=== PATIENT | female | born 1965 | race Caucasian/White ===

== ENCOUNTER → 2017-06-12 | Outpatient (REF) ==
[~2017-06-12] MED LIST: ADV250/50 INH; ALBU8.5H12 IH; CITA-128 PO; CYCL10TA29 PO; IBUP-1618 PO; IBUP600T22 PO; KET10 PO; LOR5 PO; LORA-1456 PO; NYST15CR37 TP; OMEP-153 PO; PER PO; ROBC PO; TORADOL; TRAZ-133 PO; TRAZADONE
--- NOTE | 2017-06-12 10:18 | RADIOLOGY IMAGING REPORT ---
FACILITY: [facility] - [place] PATIENT NAME: Mandie Mcclelland : 1965 MR: [id number] V: [id number] EXAM DATE: ORDERING PHYSICIAN: ARSH SAMUEL TECHNOLOGIST: Location: [facility] Patient: Mandie Mcclelland : 1965 Visit/Account:[id number] Date of Sevice: 06/12/2017 Exam type: CHEST PA AND LAT History: COPD, preop Comparison: February 03, 2012. Findings: The lungs are free of acute effusions, infiltrates or edema. There is no evidence of a pneumothorax or pneumomediastinum. Cardiac silhouette is normal in size. The trachea is in midline. IMPRESSION: 1. No acute cardiopulmonary process is seen Report Dictated By: Julia Swan MD at 06/12/2017 10:13 AM Report E-Signed By: Julia Swan MD at 06/12/2017 10:14 AM WSN:[email or web address]
--- NOTE | 2017-06-12 10:46 | EKG ---
FACILITY: [facility] - [place] PATIENT NAME: JULIA NANCE : [id number] MR: [id number] V: [id number] EXAM DATE: ORDERING PHYSICIAN: ARSH SAMUEL TECHNOLOGIST: Test Reason : Blood Pressure : / mmHG Vent. Rate : 073 BPM Atrial Rate : 073 BPM P-R Int : 144 ms QRS Dur : 080 ms QT Int : 394 ms P-R-T Axes : 032 030 029 degrees QTc Int : 434 ms Normal sinus rhythm with sinus arrhythmia Normal ECG When compared with ECG of 20-NOV-2012 17:11, No significant change was found Confirmed by KRYSTAL RAMIREZ ([id number]) on 06/12/2017 11:25:50 AM Referred By: Confirmed By:KRYSTAL RAMIREZ
== END ==
LOC: RAD 09:36
PROVIDERS: ATTEND Nurse Practitioner
DX: Z01.810 Encounter for preprocedural cardiovascular examination (principal); Z01.818 Encounter for other preprocedural examination; J44.9 Chronic obstructive pulmonary disease, unspecified
CPT/HCPCS: 71046; 93005

== ENCOUNTER 2017-06-22 00:44 | Inpatient (IN) | payer OTHER ==
[~2017-06-22] VITALS: Ht 165.1 cm; Wt 99.8 kg
[2017-06-22] VITALS (11 sets, daily range): BP systolic 117–151; BP diastolic 70–102
[2017-06-22] MEDS ORDERED: THROMBIN (BOVINE) 20,000 UNIT VIAL ONE (06:20)
[2017-06-22] MEDS ORDERED: ceFAZolin(*) 2GM/D5W 50ML 50 ML IVPB ONE (09:00)
[2017-06-22] MEDS ORDERED: FAMOTIDINE 20 MG TAB PO ONE (09:00)
[2017-06-22] MEDS ORDERED: LIDOCAINE/SOD BICARB 8.4% SYR ID ONE (09:00)
[2017-06-22] MEDS ORDERED: MIDAZOLAM 2 MG/2 ML VIAL IVP ONE (09:00)
[2017-06-22] MEDS ORDERED: NORMOSOL R SOLN(*) 1000 ML BAG 1,000 ML IV PRN (09:00)
[2017-06-22] MEDS ORDERED: BUPIVACAIN 0.25% INJ 50ML VIAL ONE (11:02)
[2017-06-22] MEDS ORDERED: SUCCINYLCHOL CHL 100MG/5ML SYR IVP ONE (11:45)
[2017-06-22] MEDS ORDERED: fentaNYL CITR 250 MCG/5 ML AMP ONE (11:55)
[2017-06-22] MEDS ORDERED: PROPOFOL EMUL(*) 10MG/ML 20 ML 180 ML ONE (12:51)
[2017-06-22] MEDS ORDERED: ONDANSETRON 4 MG/2 ML VIAL ONE (12:51)
[2017-06-22] MEDS ORDERED: DEXAMETHASONE SOD PHOS 10MG/ML ONE (12:51)
[2017-06-22] MEDS ORDERED: fentaNYL CITR 100 MCG/2 ML AMP ONE (14:39)
[2017-06-22] MEDS ORDERED: HYDROmorphone HCL 2 MG/ML SDV ONE (14:58)
[2017-06-22] MEDS ORDERED: DIAZEPAM 5 MG TAB PO PRN (15:25)
[2017-06-22] MEDS ORDERED: BISACODYL 10 MG SUPP PR PRN (15:25)
[2017-06-22] MEDS ORDERED: ONDANSETRON 4 MG/2 ML VIAL IVP PRN (15:25)
[2017-06-22] MEDS ORDERED: MAGNESIUM HYDROXIDE* 30ML UDCP PO PRN (15:25)
[2017-06-22] MEDS ORDERED: ACETAMINOPHEN 500 MG TAB PO PRN (15:25)
[2017-06-22] MEDS ORDERED: diphenhydrAMINE 25 MG CAP PO PRN (15:25)
[2017-06-22] MEDS ORDERED: FLUSH 10 ML SYR IVP PRN (15:25)
[2017-06-22] MEDS ORDERED: oxyCODONE HCL 5 MG CAP PO PRN (15:25)
[2017-06-22] MEDS ORDERED: BENZOCAINE/MENTHOL 1 EACH LOZG PO PRN (15:25)
[2017-06-22] MEDS ORDERED: LR(*) 1000 ML BAG 1,000 ML IV PRN (15:25)
[2017-06-22] MEDS ORDERED: HYDROmorphone HCL 2 MG/ML SDV IVP PRN ×2 (15:25)
[2017-06-22] MEDS ORDERED: ACETAMINOPHEN(*)1000 MG/100 ML 100 ML IVPB PRN (15:25)
--- NOTE | 2017-06-22 16:20 | Hospitalist Progress Note ---
Subjective Progress Notes Subjective Patient seen post-op. Reviewed PMHx (COPD on no meds, and HTN lisinopril prescribed but not started). She reports doing well at this time. No CP/SOB/N/V. Physical Exam Vital Signs Date Time Temp Pulse Resp B/P (MAP) Pulse Ox O2 Delivery O2 Flow Rate FiO2 06/22/17 15:47 98.4 72 16 140/94 (109) 94 Nasal Cannula 2.0 Intake and Output 06/23/17 07:00 Intake Total 1950 ml Output Total 50 ml Balance 1900 ml Intake Oral 50 ml IV Total 1900 ml Output Estimated Blood Loss 50 ml General Appearance: Alert, Awake Cardiovascular: Regular Rate and Rhythm Respiratory: Clear to Auscultation Assessment and Plan Problems: (1) Elevated blood pressure reading Status: Acute Assessment & Plan: She states that her BPs at home have been normal and she did not start the lisinopril as was prescribed by Dr. Lehman. We will monitor her BPs and start treatment if needed. (2) COPD (chronic obstructive pulmonary disease) Status: Chronic Assessment & Plan: She is not currently on any medications. Will watch. BRITTANIE WHITING MD Jun 22, 2017 16:20
[2017-06-22] MEDS: APAP/HYDROCODONE 325/5 TAB PO PRN (17:10)
[2017-06-22] MEDS: ceFAZolin(*) 2GM/D5W 50ML 50 ML IVPB SCH (20:25)
[2017-06-22] MEDS: DOCUSATE SODIUM 100 MG CAP PO SCH (20:29)
--- NOTE | 2017-06-23 00:05 | RADIOLOGY IMAGING REPORT ---
FACILITY: PATIENT NAME: Mandie Mcclelland : 1965 MR: [id number] V: [id number] EXAM DATE: ORDERING PHYSICIAN: MAXINE CONTRERAS TECHNOLOGIST: Location: [facility] Patient: Mandie Mcclelland : 1965 Visit/Account:[id number] Date of Sevice: 06/22/2017 EXAMINATION: Intraoperative fluoroscopic images of the lumbar spine. HISTORY: Lumbar disc herniation. COMPARISON: None. FINDINGS: 7 fluoroscopic images of the lumbar spine were obtained in the OR during fusion. Images show placement of an interbody device at L4-5 as well as pedicle screws and rods posteriorly a cross this level. 201 seconds of fluoroscopy time was utilized during the procedure. Cumulative Dose DAP: 4.61 mGym2 IMPRESSION: Intraprocedural images as described, please see procedure report for additional detail. Report Dictated By: Sung Abreu MD at 06/22/2017 11:55 PM Report E-Signed By: Sung Abreu MD at 06/23/2017 12:02 AM WSN:[id number]
[2017-06-23] MEDS: APAP/HYDROCODONE 325/5 TAB PO PRN ×2 (03:40→08:08)
[2017-06-23] MEDS: ceFAZolin(*) 2GM/D5W 50ML 50 ML IVPB SCH (03:40)
[2017-06-23 05:24] VITALS: BP 103/50
--- NOTE | 2017-06-23 06:16 | Hospitalist Progress Note ---
Subjective Progress Notes Subjective She denies any complaints other than some short-lived nausea last PM. Physical Exam Vital Signs Date Time Temp Pulse Resp B/P (MAP) Pulse Ox O2 Delivery O2 Flow Rate FiO2 06/23/17 05:24 98.4 72 15 103/50 (67) 93 Room Air 06/22/17 23:47 2.0 General Appearance: Alert, Awake Cardiovascular: Regular Rate and Rhythm Respiratory: Other (Fairly clear) Assessment and Plan Problems: (1) Elevated blood pressure reading Status: Acute Assessment & Plan: She states that her BPs at home have been normal and she did not start the lisinopril as was prescribed by Dr. Lehman. Her BPs here have been normal. It does not appear she will need to initiate therapy at this time. We will continue to monitor her BPs and start treatment if needed. (2) COPD (chronic obstructive pulmonary disease) Status: Chronic Assessment & Plan: She is not currently on any medications. Oxygen saturations have been borderline. Exam Sepsis Risk: No Definite Risk BRITTANIE WHITING MD Jun 23, 2017 06:16
--- NOTE | 2017-06-23 07:08 | OPERATIVE REPORT 1 ---
EVENT DATE: June 22, 2017 SURGEON: Darrin Redmond MD ANESTHESIOLOGIST: Hasmukh Ho MD ANESTHESIA: General endotracheal. BUSINESS SUPPORT: Magdaleno Fiore PA-C PREOPERATIVE DIAGNOSIS Left L4 foraminal stenosis with left L4 radiculopathy. POSTOPERATIVE DIAGNOSIS Left L4 foraminal stenosis with left L4 radiculopathy. PROCEDURE PERFORMED L4-L5 minimally invasive transforaminal lumbar interbody fusion. IV FLUIDS 1600 mL. ESTIMATED BLOOD LOSS 40 mL. IMPLANTS 1. Reline screws, 6.5 mm x 50 mm x 4 from [employer]. 2. Reline 5.5 mm x 35 mm lordotic rods x 2. 3. Reline locking caps x 4. 4. A 13 mm lordotic small footprint curvilinear interbody device from [employer]. SPECIMENS None. DRAINS None. COMPLICATIONS None. DISPOSITION Post anesthesia care unit. INDICATIONS FOR SURGERY Ms. Mcclelland is a 52-year-old female who presented to our clinic with a chief complaint of radiating right lateral hip and anterior thigh pain. She underwent physical therapy, activity modifications and medications with no real improvement, and then had a left-sided L4-L5 transforaminal epidural steroid injection that gave her excellent relief for a short period of time. Her physical examination was normal with the exception of some weakness in the left tibialis anterior and quad, and her MRI showed severe foraminal stenosis on the left at L4-L5. Secondary to ongoing symptoms not responding to conservative measures, Ms. Mcclelland was offered and elected to undergo a left-sided L4-L5 transforaminal lumbar interbody fusion. I explained to her that the reason for the fusion procedure was the fact that the foraminal narrowing was so severe that it would necessitate removal of the L4-L5 facet joint on that side. Prior to surgery, I explained in detail to the patient the possible risks of surgery, including the risks of nerve injury, persistent and/or worsening pain, spinal fluid leak, infection or meningitis, excessive bleeding, paralysis, , blindness, sexual dysfunction, blood vessel injury, injury to neighboring organs, need for further surgery, bowel and bladder dysfunction, instability, autonomic nervous system dysfunction as well as potential for unforeseen medical and surgical complications. An understanding that in general spinal surgery is more predictive in improving extremity discomfort than axial spine pain and arresting the progression of spinal cord dysfunction rather than improving it was stressed. The risks of junctional degeneration, bone graft donor morbidity, the differences in efficacy between local bone graft, autologous iliac crest bone graft, allograft and synthetic grafts, the FDA status of the instrumentation, possible need for further surgery, risk of non-healing and instrumentation failure, as well as chronic pain, were also explained. DESCRIPTION OF PROCEDURE On the day of surgery, the patient was admitted to the preoperative hold area and all questions were answered. The operative site was identified and marked by myself. The patient was taken to the operating room, and after identification of the patient and the operative site, administration of antibiotics and completion of anesthesia, the patient was prepped and draped in the prone position on a Carlos table. During this time and the entire operation, care was taken to maintain appropriate perfusion pressures during anesthesia. All bony protuberances and soft tissues were well padded in the standard fashion. Pre- and intraoperatively, prophylactic antibiotics were administered according to the appropriate timing schedule. At the conclusion of the procedure, the sponge and needle count were correct x 2. Baseline neurophysiologic monitoring was obtained. Prior to surgery, I discussed in detail with the patient the value of electrophysiological monitoring. The patient understands that at times monitoring may cease to be informative due to intrinsic disease of the spinal cord or peripheral nerve roots, and not to any intraoperative event. If monitoring is unobtainable or lost in the absence of a correctable maneuver, the patient has given permission for continuation of the operative procedure, understanding that the spinal cord and nerve roots cannot be monitored any further. The surgeon in this situation is now blinded to any adverse changes in neural function, and therefore is unable to make any corrective maneuvers to alter this course. The patient understands that upon awakening from anesthesia, she may be paralyzed or experience worsening of neurologic function. Throughout the procedure, there were no significant changes in neurophysiologic monitoring. Prior to draping the patient, the C arm was brought in and used to duke appropriate landmarks on the skin. Specifically, we marked horizontal lines through the middle of the L4 and L5 pedicles with the end plates perfectly parallel to the x-ray beams. We then also marked 0.15 mm lateral to the lateral borders of the pedicle, both on the left and the right. After prepping and draping, we underwent a final time out to confirm correct patient, correct levels and correct surgery. Incisions were then made in a Aristeo fashion bilaterally, and dissection was carried down using sharp and dull dissection to the level of the lumbodorsal fascia. The lumbodorsal fascia was then incised with the Bovie, and blunt finger dissection was used to identify the L3-L4 and the L4-L5 facets and the corresponding L4 and L5 transverse processes. Fluoroscopy was then brought in, and we used standard technique to cannulate the pedicles. Specifically, on the left side we identified a starting point for the Jamshidi needle at the 9 oclock position of the pedicle. The Jamshidi was then advanced against resistance utilizing a mallet, and under fluoroscopic guidance, keeping the Jamshidi parallel to the end plate. Once we had advanced 25 mm, guide wires were placed, and imaging studies showed them to be in appropriate position. We then turned our attention to the right side, and placed guide wires in a similar fashion, this time using the 3 oclock position of the pedicle as a starting point. Once all 4 of our guide wires were in place , we obtained lateral fluoroscopy, which again verified appropriate positioning of the guide wires. We next utilized the cannulated tap to tap all 4 pedicles. This was done over the wires and under fluoroscopic guidance. Once the tap was down to appropriate depth, it was tested with neurophysiologic monitoring. No evidence of pedicle breaching was found. Once the tapping was complete and appropriate length screws had been selected, the screws were placed again under fluoroscopic guidance utilizing 50 mm screws with noland on the right and 50 mm screws with 70 mm retractor blades on the left. Once these were all in place, the screws were tested and all found to be well within appropriate range to rule out pedicle breaching. The self-retaining minimally invasive retractor was then placed into the attached blades in the left-sided pedicle screws. The medial blade was attached , and good visualization of the left L4-L5 facet and left L4 lamina was obtained. An osteotome was used to first osteotomize the inferior articular process of L4, taking care not to osteotomize the pedicle of L4. The osteotome was then used to knock off the superior articular process of L5. This exposed the foraminal region, and after controlling bleeding utilizing the bipolar, the disk space was easily identified. Under fluoroscopic guidance, a discectomy was performed utilizing a combination of parish, a variety of curettes and pituitary rongeurs to remove disk material. A 13 mm trial was then placed, and fluoroscopy showed that it was the appropriate size. We then packed local bone graft anterior to where the interbody spacer would be, and then placed the interbody spacer there at L4-L5 under fluoroscopic visualization. It was then rotated so that it was in appropriate position both in the AP and the lateral planes. The self-retaining retractor was then removed, and towers attached to the pedicle screws on the left. The caliper device was used to measure for appropriate length rods, and 35 mm 5.5 mm rods were selected. The rods were placed down into the towers, and again under fluoroscopic guidance, we placed the locking caps. The caps were then finally tightened, and the towers removed. Final x-rays showed excellent position of the pedicle screws and rods. The wound was irrigated with copious sterile saline solution and then closed in layers using interrupted sutures for the deep fascia, inverted interrupted sutures for the subcutaneous tissue, and then a running subcuticular skin stitch. A sterile dressing was placed. Sponge and instrument counts were correct x 2. POSTOPERATIVE CARE PLAN The patient will remain in the hospital overnight, and once she meets discharge criteria will be discharged home. She will follow up with me in two weeks time for repeat x-rays and an examination. FLY
[2017-06-23 07:45] VITALS: BP 120/65
[2017-06-23] MEDS: DOCUSATE SODIUM 100 MG CAP PO SCH (08:09)
[2017-06-23 08:40] VITALS: Ht 165.1 cm; Wt 99.8 kg
[2017-06-23] MEDS ORDERED: DIA5 PO (08:58)
[2017-06-23] MEDS ORDERED: PER PO (08:58)
[2017-06-23] MEDS ORDERED: DOCU240C84 PO (08:59)
== END 2017-06-23 10:25 | disposition home or self-care (01) | DRG 460 ==
LOC: OR 00:44 → MED 15:40
PROVIDERS: ADMIT Orthopaedic Surgery; ATTEND Orthopaedic Surgery
PROC: 0SB20ZZ Excision of Lumbar Vertebral Disc, Open Approach (ICD-10-PCS; 2017-06-22)
PROC: 01NB0ZZ Release Lumbar Nerve, Open Approach (ICD-10-PCS; 2017-06-22)
PROC: 0SG00AJ Fusion of Lumbar Vertebral Joint with Interbody Fusion Device, Posterior Approach, Anterior Column, Open Approach (ICD-10-PCS; principal; 2017-06-22 11:41)
DX: M48.061 Spinal stenosis, lumbar region without neurogenic claudication (principal); M54.16 Radiculopathy, lumbar region; J44.9 Chronic obstructive pulmonary disease, unspecified; I10 Essential (primary) hypertension; F32.9 Major depressive disorder, single episode, unspecified; E66.9 Obesity, unspecified; K21.9 Gastro-esophageal reflux disease without esophagitis; Z90.49 Acquired absence of other specified parts of digestive tract; Z87.891 Personal history of nicotine dependence; Z68.36 Body mass index [BMI] 36.0-36.9, adult
CPT/HCPCS: 76000; 97161; C1713; J0330; J0690; J1100; J1170; J2250; J2405; J2704; J3010; J3490; J7120

== ENCOUNTER 2017-12-18 13:39 | Emergency (ER) | payer SELFPAY ==
[2017-06-23 08:40] VITALS: Wt 99.8 kg
[~2017-12-18 13:39] MED LIST changes: +DIA5 PO; +DOCU240C84 PO
[2017-12-18 13:44] VITALS: BP 149/80
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
[2017-12-18] MEDS ORDERED: NAPR375T44 PO (14:25)
--- NOTE | 2017-12-18 14:32 | RADIOLOGY IMAGING REPORT ---
FACILITY: [facility] - [place] PATIENT NAME: Mandie Mcclelland : 1965 MR: [id number] V: [id number] EXAM DATE: ORDERING PHYSICIAN: SAMI CORREA TECHNOLOGIST: Location: [facility] - [place] Patient: Mandie Mcclelland : 1965 Visit/Account:[id number] Date of Sevice: 12/18/2017 FOOT 3 VIEW RIGHT Indication: Trauma and pain Comparison: March 16, 2013. Findings: 3 views of the right foot were obtained. No evidence of fracture, dislocation, or acute osseous abnormality of the right foot. There is no focal soft tissue abnormality. No evidence of radiopaque foreign body. Chronic nonspecific lateral angulation of the DIP joint of the right second toe, unchanged. Mild deg enerative changes within the midfoot. IMPRESSION: 1.No acute osseous abnormality of the right foot Report Dictated By: Skinny Boyd MD at 12/18/2017 2:27 PM Report E-Signed By: Skinny Boyd MD at 12/18/2017 2:28 PM WSN:[email or web address]
== END 2017-12-18 14:42 | disposition home or self-care (01) ==
LOC: ER 13:41
DX: M79.671 Pain in right foot (principal)
CPT/HCPCS: 99283